=== PATIENT | female | born 1955 | race Caucasian/White ===

== ENCOUNTER 2016-04-20 09:33 | Emergency (ER) | payer OTHER ==
[~2016-04-20] VITALS: Ht 160 cm; Wt 83.9 kg
[~2016-04-20 09:33] MED LIST: ARMO150T2 PO; ASPI325T11 PO; CODE1CAP2 PO; DULO60CA6 PO; ESTR0.5T PO; HYDR-963 PO; MULT-658 PO; OMEG1CAP38 PO; OMEP40CA5 PO; PROG100C7 PO; TIZA4TAB PO; VENL75TA PO
[2016-04-20 09:50] VITALS: BP 166/83
[2016-04-20] MEDS ORDERED: OXYCODONE/APAP 5/325 TABLET. PO ONE (10:00)
--- NOTE | 2016-04-20 10:28 | RAD ---
Right lower extremity venous ultrasound, 04/20/2016 : History: Right leg pain Duplex evaluation including grayscale, color flow and spectral Doppler analysis was performed. The femoral and popliteal veins show no filling defects to suggest DVT. The visualized calf veins are unremarkable. IMPRESSION: There is no sonographic evidence of deep vein thrombosis in the right lower extremity
[2016-04-20] MEDS ORDERED: OXYC-323 PO (11:29)
--- NOTE | 2016-04-20 11:29 | PHYS DOC ---
Past Medical History Past Medical History: Other Additional Past Medical Histor: chronic back pain, sciatica Past Surgical History: Appendectomy, Tubal ligation Additional Past Surgical Histo: Rt wrist ORIF, neck surgery Alcohol Use: Occasionally Drug Use: None Adult General Chief Complaint Chief Complaint: LOWER EXT PAIN HPI HPI 60-year-old female who's had some significant right-sided calf tenderness that was noted today while she was at physical therapy. She denies any history of blood clots before. She denies any trauma to the right calf. She denies any fever or chills. She denies any chest pain or shortness of breath. Patient states she's in physical rehabilitation for known back issue. She denies any significant swelling or redness to the area. She denies any fever or chills. She has tried taking percocet with minimal relief but has not currently have any percocet at home. Review of Systems Review of Systems Constitutional: Denies fever or chills [] Eyes: Denies change in visual acuity, redness, or eye pain [] HENT: Denies nasal congestion or sore throat [] Respiratory: Denies cough or shortness of breath [] Cardiovascular: No additional information not addressed in HPI [] GI: Denies abdominal pain, nausea, vomiting, bloody stools or diarrhea [] : Denies dysuria or hematuria [] Musculoskeletal: Denies back pain, has joint pain [] Integument: Denies rash or skin lesions [] Neurologic: Denies headache, focal weakness or sensory changes [] Endocrine: Denies polyuria or polydipsia [] Current Medications Current Medications Current Medications Medications (Trade) Dose Ordered Sig/[facility] Start Time Stop Time Status Last Admin Dose Admin Oxycodone/ Acetaminophen (Percocet 5/325) 1 tab 1X ONCE 04/20/16 10:00 04/20/16 10:01 DC 04/20/16 10:02 1 TAB Allergies Allergies Allergies Coded Allergies Type Severity Reaction Last Updated Verified No Known Drug Allergies 05/30/15 No Physical Exam Physical Exam Constitutional: Well developed, well nourished, no acute distress, non-toxic appearance. [] HENT: Normocephalic, atraumatic, bilateral external ears normal, oropharynx moist, no oral exudates, nose normal. [] Eyes: PERRLA, EOMI, conjunctiva normal, no discharge. [] Neck: Normal range of motion, no tenderness, supple, no stridor. [] Cardiovascular:Heart rate regular rhythm, no murmur [] Lungs & Thorax: Bilateral breath sounds clear to auscultation [] Abdomen: Bowel sounds normal, soft, no tenderness, no masses, no pulsatile masses. [] Skin: Warm, dry, no erythema, no rash. [] Back: No tenderness, no CVA tenderness. [] Extremities: Tenderness to right gastrocnemius but no palpable deformity or swelling, no erythema, no cyanosis, no clubbing, ROM intact, no edema. [] Neurologic: Alert and oriented X 3, normal motor function, normal sensory function, no focal deficits noted. [] Psychologic: Affect normal, judgement normal, mood normal. [] Current Patient Data Vital Signs Vital Signs Date Time Temp Pulse Resp B/P Pulse Ox O2 Delivery O2 Flow Rate FiO2 04/20/16 09:50 98.6 75 20 166/83 99 Room Air 98.6 EKG EKG [] Radiology/Procedures Radiology/Procedures Venous doppler reveals the following: Duplex evaluation including grayscale, color flow and spectral Doppler analysis was performed. The femoral and popliteal veins show no filling defects to suggest DVT. The visualized calf veins are unremarkable Course & Med Decision Making Course & Med Decision Making Pertinent Labs and Imaging studies reviewed. (See chart for details) This 60-year-old female who has significant right calf tenderness had a Doppler that was negative for any acute DVT. There is no evidence of any cellulitis in the area. There is no indication perform any laboratory workup at this time. A counsele her at length that she is to be reevaluated in next several days and she may require repeat ultrasound to rule out DVT in the next week. I wrote her a prescription for some Percocet that will help ease her pain for the next several days. I gave her strict instruction to keep the extremity elevated and avoid strenuous activities. The patient was given an Choco wrap and discharged without incident. Patient was able to ambulate out of the department without difficulty. Dragon Disclaimer Dragon Disclaimer This electronic medical record was generated, in whole or in part, using a voice recognition dictation system. Departure Departure Impression: Primary Impression: Gastrocnemius muscle strain Disposition: 01 HOME, SELF-CARE Admitting Physician: Other Condition: STABLE Referrals: URBANO KHAN MD (PCP) Patient Instructions: Leg Cramps Additional Instructions: Please follow up with your primary doctor in the next 2-3 days. They made decide to do a follow up ultrasound in several days to rule out a blood clot. Return to the ER immediately if you develop any worsening of your symptoms. Scripts Oxycodone/Apap 5-325 (Percocet 5-325 Mg Tablet)1 Each Tablet1 Tab PO PRN Q6HRS PRN PAIN #8 TAB Ref 0 Prov:YUKI PARKER DO 04/20/16 YUKI PARKER DO Apr 20, 2016 11:29
== END 2016-04-20 11:36 | disposition home or self-care (01) ==
LOC: ER 09:33
DX: S86.811A Strain of other muscle(s) and tendon(s) at lower leg level, right leg, initial encounter (principal); G89.29 Other chronic pain; X58.XXXA Exposure to other specified factors, initial encounter; Y93.89 Activity, other specified; Y92.89 Other specified places as the place of occurrence of the external cause; Y99.8 Other external cause status
CPT/HCPCS: 93971; 99284-25

== ENCOUNTER → 2016-05-28 | Outpatient (CLI) | payer OTHER ==
[~2016-05-28] MED LIST changes: +CELE100C PO; +CYCL10TA2 PO; +GABA600T2 PO; +OXYC-323 PO; +TOPI50TA38 PO
--- NOTE | 2016-05-28 13:17 | PAIN ---
DATE OF SERVICE: 05/28/2016 DIAGNOSES: 1. Lumbar radiculopathy with lumbar degenerative disk disease and post lumbar laminectomy syndrome. 2. Cervical radiculopathy with post-cervical laminectomy syndrome and cervical degenerative disk disease. HISTORY OF PRESENT ILLNESS: The patient is a 60-year-old female who returns for followup status post previous epidural injections with the last one in September 2015. The patient has had lumbar diskectomy at 2 levels since that time which was in December 2015. The patient reports the pain never resolved, has still significant pain in the low back and down the left leg, somewhat both legs in the superior aspect ____ the left leg which is becoming more weak radiating from the hip to the thigh to the lower leg, mostly in the posterior and lateral aspect ____ from 3 to 10 on a scale of 10, worse with standing, walking, activity, reports some pain on the right side as well but mostly on the left. The patient reports she is much weaker, burning, cramping, radiating pain which physical therapy has made worse. She is doing some pool therapy still on her own at the local [facility] but still having significant pain as noted in the left leg most significantly. The patient did have a new myelogram showing still some significant stenosis at the L3-L4 and L4-L5 levels, which were levels of surgery, but her neurosurgeon is not recommending any further interventions at this time. The patient reports it awakens her from sleep at night. It is becoming more and more problematic over time. PAST MEDICAL HISTORY: Significant for gastroesophageal reflux, arthritis, previous surgical fusion, right wrist surgery, right ankle surgery, appendectomy, kidney stone extraction, and history of gastric ulcers. CURRENT MEDICATIONS: Shows gabapentin, Cymbalta, hydrocodone, Celebrex, Ultram, and Paxil. ALLERGIES: The patient has no known drug allergies. FAMILY HISTORY: Significant for strokes, hypertension, diabetes, and cancer. SOCIAL HISTORY: The patient drinks alcohol occasionally, but only once or twice a month. The patient does not smoke. 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 REVIEW OF SYSTEMS: The patient's review of systems is positive for those items mentioned in the history of present illness. All systems were reviewed and otherwise complete, full, and well documented on the patient's chart. PHYSICAL EXAMINATION: VITAL SIGNS: Today, the patient's blood pressure is 126/81, pulse 69, respirations are 20, temperature is 98.5 degrees Fahrenheit, height is 5 feet 2-1/2 inches, weighs 188 pounds. GENERAL: The patient is awake, alert, oriented, appropriate, very pleasant demeanor. HEENT: Head shows normocephalic, atraumatic. Extraocular movements are intact and symmetrical. Oral cavity shows mucous membranes moist and pink. Dentition is intact. NECK: Shows anterior throat supple without palpable lymphadenopathy noted. Swallow reflex is symmetrical. CHEST: Shows normal on inspection. Breath sounds are clear to auscultation bilaterally. HEART: Shows S1 and S2 clear. No murmurs are auscultated. ABDOMEN: Soft, nontender, nondistended. No palpable organomegaly, no rebound, or guarding demonstrated. BACK: Shows spine grossly midline. Well-healed surgical scars noted in the lumbar distribution with some flattening of lumbar lordotic curvature. Lumbar paraspinous muscle shows some moderate tenderness with palpation bilaterally, but it is roughly symmetrical and diffusely tender throughout the middle and lower distribution without radiation. No tenderness over the sacrum or sacroiliac regions. The patient shows some limited extension, but good forward flexion of the lumbar spine without significant pain reported. Right and left lateral rotation reports no significant pain as well. Lower extremities showed deep tendon reflexes 1+ in the patellar and tendo calcaneus tendons. Motor exam is approximately 4 on a scale of 5 on the left and 5 out of 5 on the right. Peripheral pulses are 1+ posterior tibial and dorsalis pedis pulses. No peripheral edema is noted. No clubbing, no cyanosis. The patient is able to stand but is walking with a cane in her left hand and significant shuffling gait and limping gait favoring her left lower extremity. Options were discussed with the patient, and the patient's old chart was reviewed as her current medication regimen and updated. Current review of systems was updated as well as noted. She would like to consider alternatives. We did discuss possible spinal cord stimulation trial which she would like to consider. She was given some information regarding this. We also discussed a caudal approach epidural steroid injection in the future which she is considering as well. She would like to give it some more time to think about these things and will contact our office if she has more questions or if she would like to proceed with any further intervention at this time. LISA STAHL MD DR: Steven JOB#: [id number] / [id number]
== END | disposition home or self-care (01) ==
LOC: PNCL 10:54
PROVIDERS: ATTEND Anesthesiology
DX: M51.16 Intervertebral disc disorders with radiculopathy, lumbar region (principal); M96.1 Postlaminectomy syndrome, not elsewhere classified; M50.10 Cervical disc disorder with radiculopathy, unspecified cervical region
CPT/HCPCS: 99212

== ENCOUNTER 2016-07-04 01:03 | Emergency (ER) | payer OTHER ==
[~2016-07-04] VITALS: Ht 157.5 cm; Wt 83.5 kg
[2016-07-04 01:43] VITALS: BP 108/57
[2016-07-04] MEDS ORDERED: HYDROmorphone 2 MG/ML VIAL IV ONE ×2 (02:00→02:30)
[2016-07-04] MEDS ORDERED: HYDR-971 PO (03:06)
--- NOTE | 2016-07-04 03:07 | PHYS DOC ---
Past Medical History Past Medical History: Other Additional Past Medical Histor: chronic back pain, sciatica Past Surgical History: Appendectomy, Tubal ligation Additional Past Surgical Histo: Rt wrist ORIF, neck surgery Alcohol Use: None Drug Use: None Adult General Chief Complaint Chief Complaint: WRIST PAIN HPI HPI 60-year-old female who fell on an outstretched hand and she states she slipped and fell on a hard surface. She did not hit her head or have any loss consciousness with this fall. She arrives with significant swelling to her left wrist with an ice pack in place. She denies any numbness or tingling in the left wrist. She denies any elbow or shoulder tenderness. She denies any chest pain or SOB. Review of Systems Review of Systems Constitutional: Denies fever or chills [] Eyes: Denies change in visual acuity, redness, or eye pain [] HENT: Denies nasal congestion or sore throat [] Respiratory: Denies cough or shortness of breath [] Cardiovascular: No additional information not addressed in HPI [] GI: Denies abdominal pain, nausea, vomiting, bloody stools or diarrhea [] : Denies dysuria or hematuria [] Musculoskeletal: Denies back pain, has joint pain [] Integument: Denies rash or skin lesions [] Neurologic: Denies headache, focal weakness or sensory changes [] Endocrine: Denies polyuria or polydipsia [] Current Medications Current Medications Current Medications Medications (Trade) Dose Ordered Sig/[facility] Start Time Stop Time Status Last Admin Dose Admin Acetaminophen/ Hydrocodone Bitart (Lortab 5/325) 1 tab 1X ONCE 07/04/16 03:15 07/04/16 03:16 DC 07/04/16 03:15 1 TAB Hydromorphone HCl (Dilaudid) 0.5 mg 1X ONCE 07/04/16 02:30 07/04/16 02:32 DC 07/04/16 02:29 0.5 MG Allergies Allergies Allergies Coded Allergies Type Severity Reaction Last Updated Verified No Known Drug Allergies 05/30/15 No Physical Exam Physical Exam Constitutional: Well developed, well nourished, no acute distress, non-toxic appearance. [] HENT: Normocephalic, atraumatic, bilateral external ears normal, oropharynx moist, no oral exudates, nose normal. [] Eyes: PERRLA, EOMI, conjunctiva normal, no discharge. [] Neck: Normal range of motion, no tenderness, supple, no stridor. [] Cardiovascular:Heart rate regular rhythm, no murmur [] Lungs & Thorax: Bilateral breath sounds clear to auscultation [] Abdomen: Bowel sounds normal, soft, no tenderness, no masses, no pulsatile masses. [] Skin: Warm, dry, no erythema, no rash. [] Back: No tenderness, no CVA tenderness. [] Extremities: Has significant tenderness and swelling to the left wrist, no cyanosis, no clubbing, ROM intact, no edema. [] Neurologic: Alert and oriented X 3, normal motor function, normal sensory function, no focal deficits noted. [] Psychologic: Affect normal, judgement normal, mood normal. [] Current Patient Data Vital Signs Vital Signs Date Time Temp Pulse Resp B/P (MAP) Pulse Ox O2 Delivery O2 Flow Rate FiO2 07/04/16 02:29 18 Room Air 07/04/16 01:43 64 108/57 (74) 96 07/04/16 01:25 98.6 98.6 EKG EKG [] Radiology/Procedures Radiology/Procedures Left wrist films demonstrates a left distal radius fracture of the left wrist that is minimally displaced Course & Med Decision Making Course & Med Decision Making Pertinent Labs and Imaging studies reviewed. (See chart for details) This 60-year-old female with a left distal radius fracture was given a sugar tong splint and multiple doses of pain control while in the department. I'll be discharging her with a course of pain control and follow-up instructions with orthopedic surgery, Dr. Castillo, in the next several days. Post-splint reassessment reveals adequate immobilization with excellent capillary refill and use of all fingers in the affected extremity. Dragon Disclaimer Dragon Disclaimer This electronic medical record was generated, in whole or in part, using a voice recognition dictation system. Departure Departure Impression: Primary Impression: Radial head fracture, closed Disposition: 01 HOME, SELF-CARE Admitting Physician: Other Condition: STABLE Referrals: URBANO KHAN MD (PCP) GLADIS CASTILLO MD Patient Instructions: Radial Head Fracture, [id number] Additional Instructions: Please follow up with your orthopedic surgeon, Dr. Castillo, in the next 2-3 days for your fracture. Take your pain medication as prescribed. Return to the ER if you develop any worsening of your symptoms. Scripts Hydrocodone/Apap 5-325 (NORCO 5-325 TABLET) 1 Each Tablet 1 TAB PO PRN Q6HRS Y for PAIN, #12 TAB 0 Refills Prov: YUKI PARKER DO 07/04/16 YUKI PARKER DO July 04, 2016 03:07
[2016-07-04] MEDS ORDERED: HYDROcodone/APAP 5/325MG 1 TAB TABLET PO ONE (03:15)
--- NOTE | 2016-07-04 07:18 | RAD ---
Left wrist, 3 views, 07/04/2016: History: Trauma There is a fracture of the distal radius. There is slight impaction fracture site. There is no significant displacement of the major distal fracture fragment. The carpal bones are intact. There are mild degenerative changes at the wrist. IMPRESSION: Nondisplaced fracture of the distal left radius.
== END 2016-07-04 03:20 | disposition home or self-care (01) ==
LOC: ER 01:03
DX: S52.125A Nondisplaced fracture of head of left radius, initial encounter for closed fracture (principal); G89.29 Other chronic pain; Z96.631 Presence of right artificial wrist joint; W01.0XXA Fall on same level from slipping, tripping and stumbling without subsequent striking against object, initial encounter; Y93.89 Activity, other specified; Y92.89 Other specified places as the place of occurrence of the external cause; Y99.8 Other external cause status
CPT/HCPCS: 29125; 73110; 96374; 96376; 99284; J1170

== ENCOUNTER → 2016-08-09 | Outpatient (CLI) | payer OTHER ==
[~2016-08-09] MED LIST changes: -ARMO150T2 PO; +ARMO150T4 PO; +HYDR-971 PO; +PROG100C15 PO; -PROG100C7 PO
== END | disposition home or self-care (01) ==
LOC: LAB 11:12
PROVIDERS: ATTEND Orthopaedic Surgery
DX: S52.532G Colles' fracture of left radius, subsequent encounter for closed fracture with delayed healing (principal)
CPT/HCPCS: 36415; 82306